=== PATIENT | female | born 1975 | race Caucasian/White ===

== ENCOUNTER 2016-11-29 10:02 | Outpatient (CLI) | payer OTHER ==
--- NOTE | 2016-11-29 11:34 | DIAGNOSTIC IMAGING REPORT ---
PROCEDURE: US COMPLETE PELVIC W/TRANSVAG INDICATION: MENORRHAGIA, DYSMENORRHEA TECHNIQUE: Transabdominal and endovaginal pinto scale and color Doppler sonographic images of the female pelvis were obtained. COMPARISON: None. FINDINGS: TRANSABDOMINAL SCANS: Anteverted uterus measures 7.8 cm in length. Normal contour and echotexture. Normal adnexa without suspicious mass. The visible portion of the urinary bladder is normal. No significant free pelvic fluid. Incidental note is made of echogenic renal pyramids bilaterally with a few cortical medullary cysts in the right kidney. The patient has a known history of medullary sponge kidney. TRANSVAGINAL SCANS: The uterus is anteverted in position and has a homogeneous myometrial echotexture. It measures 8.3 x 5.1 x 5.4 cm. The endometrium is 15 mm in thickness. Normal endometrial morphology and vascularity. No endometrial fluid collections. The right ovary measures 3.4 x 3.2 x 2.3 cm and contains a peripherally hypervascular, slightly irregular corpus luteum measuring 1.7 cm. There is normal arterial and venous ovarian flow present. The left ovary measures 3.2 x 2.4 x 1.7 cm and also has a normal follicular echotexture and normal vascularity. No suspicious adnexal masses or free pelvic fluid. IMPRESSION: 1. Normal pelvic ultrasound. 2. Incidental findings consistent with medullary sponge kidney.
== END 2016-11-29 23:00 ==
LOC: US SRH 10:02
DX: N92.0 Excessive and frequent menstruation with regular cycle (principal); N94.6 Dysmenorrhea, unspecified